=== PATIENT | female | born 1940 | race Caucasian/White ===

== ENCOUNTER 2017-03-07 07:28 | Outpatient (CLI) | payer MEDICARE, MEDICAID | END 2017-03-07 07:29 | DX: Z00.5 Encounter for examination of potential donor of organ and tissue (principal); Z79.891 Long term (current) use of opiate analgesic ==

== ENCOUNTER 2017-05-08 12:34 | Emergency (ER) | payer MEDICARE, MEDICAID ==
--- NOTE | 2017-05-08 13:14 | ED Physician Documentation ---
PD HPI CHEST PAIN - Stated complaint Stated Complaint: HEART PALPITATIONS - Chief complaint Chief Complaint: Cardiac - History obtained from History obtained from: Patient - History of Present Illness Timing - onset: How many hours ago (1), Today Timing - onset during: Rest Timing - duration: Hours (1) Timing - details: Abrupt onset (she has history of SVT and felt like it was going fast today, after having some arguement with temporary roommate. Feeling like heart was fast without chest pain, near syncope. Had been several years since an episode, so had recently been tapering to off her Digoxin and decreased her metoprolol dose per direction of her PMD. Had noted some palpitations at times the past few days, so talked with PMD and had resumed prior dose of Metoprolol yesterday. She feels the fast heart rate resolved just in waiting room while registering for ED. She is feeling okay right now. No recent illness. Normally hydrated.), Now resolved Quality: Tightness (mostly feeling heart rate was fast) Location: Substernal Improved by: Other (tried Valsalva at home without imrpovement at home.). No: Rest Worsened by: No: Exertion Associated symptoms: Palpitations (feeling of fast heart rate). No: Shortness of air, Diaphoresis, Nausea, Feeling faint / dizzy, General Weakness Similar symptoms before: Diagnosis (SVT) Review of Systems Constitutional: denies: Fever, Chills Nose: denies: Rhinorrhea / runny nose, Congestion Throat: denies: Sore throat Respiratory: denies: Cough GI: denies: Abdominal Pain, Vomiting, Diarrhea Skin: denies: Rash, Lesions Musculoskeletal: denies: Neck pain, Back pain Neurologic: denies: Near syncope, Altered mental status PD PAST MEDICAL HISTORY - Past Medical History Cardiovascular: Arrhythmia (SVT episodes but had not had any for few years. ) Respiratory: None Neuro: None Endocrine/Autoimmune: None Musculoskeletal: Fibromyalgia, Fatigue - Past Surgical History Past Surgical History: No - Present Medications Home Medications: Ambulatory Orders Medication Instructions Recorded Confirmed Aspirin [Aspirin EC] 325 mg PO 07/18/13 07/23/13 Digoxin [Lanoxin] 125 mcg PO DAILY 07/18/13 07/23/13 HYDROcod/ACETAM 5/325 [Vicodin 1 - 2 ea PO Q6H PRN 07/18/13 07/23/13 5/325] HYDROcod/ACETAM 5/325 [Vicodin 1 - 2 ea PO Q6H PRN #15 tablet 07/18/13 07/23/13 5/325] Morphine Sulfate [Morphine Sulfate 20 mg PO 07/18/13 07/23/13 ER] Ondansetron [Zofran] 4 mg PO Q6H PRN #10 tablet 07/18/13 07/23/13 traMADol [Ultram] 50 - 100 mg PO Q4-6H PRN #20 tablet 07/23/13 - Allergies Allergies/Adverse Reactions: Allergies Allergy/AdvReac Type Severity Reaction Status Date / Time horse serum AdvReac Unknown Respiratory Uncoded 05/08/17 12:41 - Social History Does the pt smoke?: No Smoking Status: Never smoker Does the pt drink ETOH?: No Does the pt have substance abuse?: No - Immunizations Immunizations are current?: Yes Immunizations: TDAP current <10years - POLST Patient has POLST: No PD ED PE NORMAL - Vitals Vital signs reviewed: Yes - General General: Alert and oriented X 3, No acute distress, Well developed/nourished - HEENT HEENT: Moist mucous membranes, Pharynx benign - Neck Neck: Supple, no meningeal sign, No adenopathy - Cardiac Cardiac: RRR, No murmur - Respiratory Respiratory: Clear bilaterally - Abdomen Abdomen: Soft, Non tender - Derm Derm: Normal color, Warm and dry - Extremities Extremities: No edema, No calf tenderness / cord - Neuro Neuro: Alert and oriented X 3, No motor deficit, Normal speech - Psych Psych: Normal mood, Normal affect Results - Vitals Vitals: Vital Signs - 24 hr 05/08/17 05/08/17 12:38 13:43 Temperature 36.4 C L Heart Rate 95 79 Respiratory 14 14 Rate Blood Pressure 138/96 H 134/74 H O2 Saturation 97 100 Oxygen O2 Source Room air - EKG (time done) 13:03 Rate: Rate (enter#) (85) Rhythm: NSR [place]: Normal Intervals: RBBB Ischemia: No: ST elevation c/w ischemia, ST depression Compare to prior EKG: Old EKG unavailable PD MEDICAL DECISION MAKING - ED course Complexity details: considered differential (She feels okay now with resolved SVT by history. She feels okay not having any testing (consider lytes is about it). ), d/w patient Departure - Departure Disposition: 01 Home, Self Care Clinical Impression: Intermittent palpitations Condition: Stable Record reviewed to determine appropriate education?: Yes Instructions: ED Palpitations Comments: Usual medications. Stay well hydrated. Return if recurrent symptoms. Discharge Date/Time: 05/08/17 13:51
[2017-05-08 13:50] VITALS: BP 134/74
== END 2017-05-08 13:51 | disposition home or self-care (01) ==
LOC: ED 12:34
DX: R00.2 Palpitations (principal); I45.10 Unspecified right bundle-branch block; Z79.82 Long term (current) use of aspirin
CPT/HCPCS: 99283

== ENCOUNTER 2017-05-08 20:21 | Emergency (ER) | payer MEDICARE, MEDICAID ==
[2017-05-08] MEDS ORDERED: SODIUM CHLORIDE 0.9% 1,000 ML IV ONE (21:12)
--- NOTE | 2017-05-08 21:20 | ED Physician Documentation ---
History of Present Illness - Stated complaint Stated Complaint: RT HAND CRAMPING - Chief complaint Chief Complaint: Cardiac - History obtained from History obtained from: Patient - History of Present Illness Timing: Today - Additonal information Additional information: 77 y/o female with a prior history of SVT has been stable for years without an episode and she has come back from [facility] to donate a kidney to her sister and she is adjusting her medications tapering off of the dig and metoprolol and she has had to start back on the metoprolol because she had an episode last week. She had an episode today and converted in the waiting room and was seen by Dr. Ewing earlier today without symptoms. She was told then that she was likely dehydrated so she bought a case of water but did not drink any. She has subsequently developed some cramping in her right hand and a headache and she returns to the ED. PD PAST MEDICAL HISTORY - Past Medical History Past Medical History: Yes Cardiovascular: Arrhythmia, Other Respiratory: None Neuro: None Endocrine/Autoimmune: None Musculoskeletal: Fibromyalgia, Fatigue Other Past Medical History: SVT - Past Surgical History Past Surgical History: No - Present Medications Home Medications: Ambulatory Orders Medication Instructions Recorded Confirmed Aspirin [Aspirin EC] 325 mg PO 07/18/13 07/23/13 Digoxin [Lanoxin] 125 mcg PO DAILY 07/18/13 07/23/13 HYDROcod/ACETAM 5/325 [Vicodin 1 - 2 ea PO Q6H PRN 07/18/13 07/23/13 5/325] HYDROcod/ACETAM 5/325 [Vicodin 1 - 2 ea PO Q6H PRN #15 tablet 07/18/13 07/23/13 5/325] Morphine Sulfate [Morphine Sulfate 20 mg PO 07/18/13 07/23/13 ER] Ondansetron [Zofran] 4 mg PO Q6H PRN #10 tablet 07/18/13 07/23/13 traMADol [Ultram] 50 - 100 mg PO Q4-6H PRN 05/08/17 05/08/17 Ciprofloxacin HCl [Cipro] 500 mg PO BID #14 tablet 05/09/17 - Allergies Allergies/Adverse Reactions: Allergies Allergy/AdvReac Type Severity Reaction Status Date / Time horse serum AdvReac Unknown Respiratory Uncoded 05/08/17 20:44 - Social History Does the pt smoke?: No Smoking Status: Never smoker Does the pt drink ETOH?: No Does the pt have substance abuse?: No - Immunizations Immunizations are current?: Yes Immunizations: TDAP current <10years - POLST Patient has POLST: No PD ED PE NORMAL - Vitals Vital signs reviewed: Yes (hypertensive mild ) - General General: No acute distress, Well developed/nourished - HEENT HEENT: Atraumatic, PERRL, EOMI - Neck Neck: Supple, no meningeal sign, No bony TTP - Cardiac Cardiac: RRR, No murmur - Respiratory Respiratory: No respiratory distress, Clear bilaterally - Abdomen Abdomen: Normal bowel sounds, Soft, Non tender - Back Back: No CVA TTP, No spinal TTP - Derm Derm: Normal color, Warm and dry, No rash - Extremities Extremities: No deformity, No tenderness to palpate, Normal ROM s pain, No edema - Neuro Neuro: Alert and oriented X 3, No motor deficit, No sensory deficit, Normal speech - Psych Psych: Normal mood, Normal affect Results - Vitals Vitals: Vital Signs - 24 hr 05/08/17 05/08/17 05/08/17 20:30 20:49 21:40 Temperature 36.6 C Heart Rate 85 82 73 Respiratory 16 20 15 Rate Blood Pressure 120/82 H 134/76 H 126/76 O2 Saturation 97 98 97 05/08/17 05/08/17 05/09/17 22:21 23:39 00:25 Temperature 36.4 C L Heart Rate 73 76 76 Respiratory 18 19 20 Rate Blood Pressure 142/68 H 142/64 H 126/64 O2 Saturation 97 97 97 Oxygen O2 Source Room air - EKG (time done) 2056 Rate: Rate (enter#) (73) Rhythm: NSR Intervals: RBBB (in[place]ople[place]) - Labs Labs: Laboratory Tests 05/08/17 05/08/17 05/08/17 21:25 21:25 21:25 WBC 11.7 H RBC 4.91 Hgb 15.3 Hct 45.2 MCV 92.1 MCH 31.2 H MCHC 33.8 RDW 13.7 Plt Count 300 MPV 6.8 L Neut # 8.2 H Lymph # 2.6 [place] # 0.7 Eos # 0.1 Baso # 0.1 Absolute Nucleated RBC 0.00 Nucleated RBCs 0.0 Sodium 139 Potassium 4.1 Chloride 105 Carbon Dioxide 24 Anion Gap 10.0 BUN 23 H Creatinine 0.5 Estimated GFR (MDRD) 120 Glucose 99 Calcium 9.6 Total Bilirubin 1.4 H AST 27 ALT 30 Alkaline Phosphatase 54 Troponin I < 0.04 Total Protein 7.5 Albumin 4.0 Globulin 3.5 Albumin/Globulin Ratio 1.1 Lipase 22 Urine Color Urine Clarity Urine pH Ur Specific [place] Urine Protein Urine Glucose (UA) Urine Ketones Urine Occult Blood Urine Nitrite Urine Bilirubin Urine Urobilinogen Ur Leukocyte Esterase Urine RBC Urine WBC Ur Squamous Epith Cells Urine Bacteria Ur Microscopic Review Urine Culture Comments 05/08/17 22:30 WBC RBC Hgb Hct MCV MCH MCHC RDW Plt Count MPV Neut # Lymph # [place] # Eos # Baso # Absolute Nucleated RBC Nucleated RBCs Sodium Potassium Chloride Carbon Dioxide Anion Gap BUN Creatinine Estimated GFR (MDRD) Glucose Calcium Total Bilirubin AST ALT Alkaline Phosphatase Troponin I Total Protein Albumin Globulin Albumin/Globulin Ratio Lipase Urine Color YELLOW Urine Clarity HAZY Urine pH 6.0 Ur Specific [place] 1.025 Urine Protein NEGATIVE Urine Glucose (UA) NEGATIVE Urine Ketones NEGATIVE Urine Occult Blood LARGE H Urine Nitrite POSITIVE H Urine Bilirubin NEGATIVE Urine Urobilinogen 0.2 (NORMAL) Ur Leukocyte Esterase MODERATE H Urine RBC 6-10 H Urine WBC 11-25 H Ur Squamous Epith Cells FEW Squamous Urine Bacteria Many H Ur Microscopic Review INDICATED Urine Culture Comments INDICATED Procedures - IVC sono (time) 2119 Bedside IVC sono: IVC measures (cm) (1.23), IVC collapsed c insp (cm) (complete) , Dehydration PD MEDICAL DECISION MAKING - ED course Complexity details: reviewed old records, reviewed results, re-evaluated patient , considered differential, d/w patient ED course: 77 y/o female with cramping in her hand and a headache is dehydrated on interrogation of the IVC and she is given IV saline. She is found to have UTI and is given a dose of rocephin as well. Departure - Departure Disposition: 01 Home, Self Care Clinical Impression: Dehydration Urinary tract infection Qualifiers: Urinary tract infection type: acute cystitis Hematuria presence: without hematuria Qualified Code(s): N30.00 - Acute cystitis without hematuria Condition: Stable Instructions: ED Dehydration, ED UTI Cystitis Female Follow-Up: Kayla Jones ARNP [Credentialed Staff Provider] - Prescriptions: Ciprofloxacin HCl [Cipro] 500 mg PO BID #14 tablet Discharge Date/Time: 05/09/17 00:30
[2017-05-08 21:38] LABS: BASOPHILS # (AUTO) 0.1 10^3/uL (0.0-0.1); BASOPHILS % (AUTO) 0.7 %; EOSINOPHILS # (AUTO) 0.1 10^3/uL (0.0-0.7); EOSINOPHILS % (AUTO) 0.5 %; HCT - HEMATOCRIT 45.2 % (37.0-47.0); HGB - HEMOGLOBIN 15.3 g/dL (12.0-16.0); LYMPHOCYTES # (AUTO) 2.6 10^3/uL (1.5-3.5); LYMPHOCYTES % (AUTO) 22.4 %; MEAN CORPUSCULAR HEMOGLOBIN 31.2 pg (27.0-31.0); MEAN CORPUSCULAR HGB CONC 33.8 g/dL (32.0-36.0); MEAN CORPUSCULAR VOLUME 92.1 fL (81.0-99.0); MEAN PLATELET VOLUME 6.8 fL (7.9-10.8); MONOCYTES # (AUTO) 0.7 10^3/uL (0.0-1.0); MONOCYTES % (AUTO) 6.4 %; NEUTROPHILS # (AUTO) 8.2 10^3/uL (1.5-6.6); RED BLOOD COUNT 4.91 10^6/uL (4.20-5.40); RED CELL DISTRIBUTION WIDTH 13.7 % (12.0-15.0); UNCORRECTED WHITE BLOOD COUNT 11.7 x10^3/uL; WHITE BLOOD COUNT 11.7 x10^3/uL (4.8-10.8)
[2017-05-08] MEDS ORDERED: IBUPROFEN 600 MG TABLET PO ONE (21:44)
[2017-05-08] MEDS ORDERED: IBUPROFEN 600 MG TABLET PO STA (21:44)
[2017-05-08 21:53] LABS: ALBUMIN/GLOBULIN RATIO 1.1 (1.0-2.2); BILIRUBIN,TOTAL 1.4 mg/dL (0.2-1.0); CALCIUM 9.6 mg/dL (8.5-10.3); CREATININE 0.5 mg/dL (0.4-1.0); POTASSIUM 4.1 mmol/L (3.5-5.0); TOTAL PROTEIN 7.5 g/dL (6.7-8.2)
[2017-05-08 22:38] LABS: BILIRUBIN,URINE NEGATIVE (NEGATIVE)
[2017-05-08 22:41] LABS: UA w/ MICROSCOPIC CHARGE YES
[2017-05-08 22:55] LABS: UR CULTURE IF IND INDICATED
[2017-05-08] MEDS ORDERED: cefTRIAXone 1 GM in SODIUM CHLORIDE 0.9% MINIBAG 100 ML IV STA (23:18)
[2017-05-08] MEDS ORDERED: cefTRIAXone 1 GM VIAL ONE (23:23)
[2017-05-09 00:30] VITALS: BP 126/64
== END 2017-05-09 00:30 | disposition home or self-care (01) ==
LOC: ED 20:21
DX: E86.0 Dehydration (principal); N30.00 Acute cystitis without hematuria; R51 Headache; R00.2 Palpitations; I45.10 Unspecified right bundle-branch block; Z79.82 Long term (current) use of aspirin; Z86.79 Personal history of other diseases of the circulatory system
CPT/HCPCS: 36415; 80053; 81001; 83690; 84484; 85025; 87077; 87086; 87181; 93005; 96365; 99283; 99284; A9270; 81003